=== PATIENT | male | born 1980 | race Caucasian/White ===

== ENCOUNTER 2022-02-17 13:39 | Outpatient (CLI) | payer BC, SELFPAY ==
[2022-02-17 17:30] LABS: INR 1.02 (0.91-1.10); Prothrombin Time 13.8 Seconds
[2022-02-17 17:31] LABS: Partial Thromboplastin Time* 33 Seconds (23-33)
== END 2022-02-17 13:40 | disposition home or self-care (01) ==
PROVIDERS: PCP Family Medicine; Visit Provider Otolaryngology
DX: R04.0 Epistaxis (principal)
CPT/HCPCS: 85610; 85730

== ENCOUNTER 2023-03-04 13:30 | Outpatient (REF) | payer BC, SELFPAY ==
[2023-03-04 14:06] LABS: Amphetamine Screen Urine Negative (Negative); Barbiturate Screen Urine Negative (Negative); Benzodiazepines Screen Urine Negative (Negative); Cannabinoid Screen Urine Negative (Negative); Cocaine Screen Urine Negative (Negative); Methadone Screen Urine Negative (Negative); Methamphetamines Screen Urine Negative (Negative); Opiate Screen Urine Negative (Negative); Oxycodone Screen Urine Negative (Negative); Phencyclidine Screen Urine Negative (Negative); Tricyclic Antidepressant Urine Negative (Negative)
== END 2023-03-04 13:31 | disposition home or self-care (01) ==
LOC: NPINS 13:30
PROVIDERS: PCP Family Medicine
DX: Z79.899 Other long term (current) drug therapy (principal)
CPT/HCPCS: 80306

== ENCOUNTER 2024-04-29 14:42 | Outpatient (CLI) | payer BC, SELFPAY ==
[2024-04-29 15:08] LABS: Amphetamine Screen Urine POSITIVE (Negative); Barbiturate Screen Urine Negative (Negative); Benzodiazepines Screen Urine Negative (Negative); Cannabinoid Screen Urine Negative (Negative); Cocaine Screen Urine Negative (Negative); Methadone Screen Urine Negative (Negative); Methamphetamines Screen Urine Negative (Negative); Opiate Screen Urine Negative (Negative); Oxycodone Screen Urine Negative (Negative); Phencyclidine Screen Urine Negative (Negative); Tricyclic Antidepressant Urine Negative (Negative)
== END 2024-04-29 14:43 | disposition home or self-care (01) ==
LOC: LAB 14:44
PROVIDERS: Nurse Practitioner Psychiatric/Mental Health; PCP Family Medicine
DX: F90.0 Attention-deficit hyperactivity disorder, predominantly inattentive type (principal)
CPT/HCPCS: 80306

== ENCOUNTER 2024-05-29 05:43 | Emergency (ER) | payer BC, SELFPAY ==
[2024-05-29 05:52] VITALS: BP 154/121; PULSE 73; RESP 16; TEMP 36.7; O2SAT 98; BMI 32.7
--- NOTE | 2024-05-29 06:14 | ED_ITS ---
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 He has not take any Tylenol or ibuprofen. Related Data Home Medications ?Medication ?Instructions ?Recorded ?Confirmed epinephrine 0.125 mg/actuation 1 puff inhalation ONCE 07/10/22 05/25/24 aerosol inhaler (Primatene Mist) dextroamphetamine-amphetamine 20 20 mg PO QDAY 05/25/24 05/29/24 mg tablet (Adderall) Previous Rx's ?Medication ?Instructions ?Recorded albuterol sulfate 90 mcg/actuation 2 inh inhalation Q6H PRN shortness 07/10/22 breath activated powder inhaler of breath or wheezing #1 ea fluticasone propionate 110 1 inh inhalation BID #12 grams 07/10/22 mcg/actuation HFA aerosol inhaler (Flovent HFA) montelukast 10 mg tablet 10 mg PO QHS #30 tabs 08/03/22 sertraline 100 mg tablet (Zoloft) 200 mg (2 x 100 mg) PO QDAY #60 11/12/22 tabs cephalexin 500 mg capsule 500 mg PO QID 7 days #28 caps 05/25/24 cephalexin 500 mg capsule 500 mg PO TID 10 days #30 caps 05/29/24 sulfamethoxazole 800 1 tab PO BID 10 days #20 tabs 05/29/24 mg-trimethoprim 160 mg tablet (Bactrim DS) Allergies Allergy/AdvReac Type Severity Reaction Status Date / Time Penicillins Allergy Mild rash Verified 05/25/24 17:59 Review of Systems Status of ROS: Reports: 10 or more systems reviewed and unremarkable except as noted in History and below [facility] Medical History Microscopic hematuria (02/24/18) ?R31.29 - Other microscopic hematuria (ICD-10) Herpes zoster ?B02.9 - Zoster without complications (ICD-10) Surgical History History of vasectomy (2017) ?Z98.52 - Vasectomy status (ICD-10) History of third molar tooth extraction ?K08.409 - Partial loss of teeth, unspecified cause, unspecified class (ICD- 10) Family History Father Coronary artery disease Paternal Grandfather Coronary artery disease Mother Depression Family/Other Stroke Parkinsons Son Von Willebrand disease Social History Narrative: , 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 His range of motion of his left knee is excellent greater than 90? in full extension is noted, popliteal fossa is normal. Right-side also has some lichenification cap refills normal sensations normal. I did review his previous visit urgent care. He was given Keflex, I think he needs more broad coverage for Staph, we will add in some Bactrim. Const: Vital Signs, click to edit/add: Vital Signs - 24 hr 05/29/24 05:52 Temperature 98.1 F Pulse Rate [Pulse Oximeter] 73 Respiratory Rate 16 Blood Pressure [Ri ght Upper Arm] 154/121 H Pulse Oximetry 98 Oxygen Delivery Me thod Room Air Documenting provider has reviewed patient's vital signs: yes Course Vital Signs Vital signs: Initial Vital Signs Temperature 98.1 F 05/29/24 05:52 Temperature Source Temporal Artery Scan 05/29/24 05:52 Pulse Rate 73 05/29/24 05:52 Respiratory Rate 16 05/29/24 05:52 Blood Pressure 154/121 H 05/29/24 05:52 Blood Pressure Mean 132 H 05/29/24 05:52 Blood Pressure Position Sitting 05/29/24 05:52 Pulse Oximetry 98 05/29/24 05:52 Oxygen Delivery Method Room Air 05/29/24 05:52 Vital Signs Temperature 98.1 F 05/29/24 05:52 Pulse Rate 73 05/29/24 05:52 Respiratory Rate 16 05/29/24 05:52 Blood Pressure 154/121 H 05/29/24 05:52 Pulse Oximetry 98 05/29/24 05:52 Oxygen Delivery Method Room Air 05/29/24 05:52 Temperature 98.1 F 05/29/24 05:52 Pulse Rate 73 05/29/24 05:52 Respiratory Rate 16 05/29/24 05:52 Blood Pressure 154/121 H 05/29/24 05:52 Pulse Oximetry 98 05/29/24 05:52 Oxygen Delivery Method Room Air 05/29/24 05:52 MDM - Skin/Abscess/Foreign Bdy MDM Narrative Medical decision making narrative: I discussed with him that he really needs to wear knee immobilizer to keep him from a moving this, as this does cause the skin to crack common goes back in the same cycle he also should put some bacitracin on his leg, over the area of cracked skin. Along with the antibiotics. He does not need admission at the p resent time I did not do a WBC cause this will not be helpful, I do not think he is toxic given his vital signs. And his ability to walk on this and move it so well Medical Records Attestation: I reviewed the patient's medical records. Discharge Plan Discharge Clinical Impression: Cellulitis, Bursitis, prepatellar, left Patient Disposition: Home, Self-Care Condition: Stable Instructions: Knee Bursitis (ED) Additional Instructions: Home rest wear knee immobilizer the only time this comes off is when you shower, otherwise he need to wear for the next 7-10 days, take the Keflex along with the Bactrim, bacitracin twice daily on the wound also is appropriate. Follow-up with primary care in the next 5 days, for recheck, return if worsening Activity Level: Light activity and Other Activity Detail: Need to wear knee immobilizer Prescriptions: New cephalexin 500 mg capsule 500 mg PO TID 10 Days Qty: 30 0RF sulfamethoxazole-trimethoprim [Bactrim DS] 800-160 mg tablet 1 tab PO BID 10 Days Qty: 20 0RF No Action Primatene Mist 0.125 mg/actuation HFA aerosol inhaler 1 puff inhalation ONCE Rx Instructions: may repeat once after 1 minute albuterol sulfate 90 mcg/actuation aerosol powdr breath activated 2 inh inhalation Q6H PRN (Reason: shortness of breath or wheezing) Qty: 1 0RF fluticasone propionate [Flovent HFA] 110 mcg/actuation HFA aerosol inhaler 1 inh inhalation BID Qty: 12 0RF montelukast 10 mg tablet 10 mg PO QHS Qty: 30 5RF dextroamphetamine-amphetamine [Adderall] 20 mg tablet 20 mg PO QDAY cephalexin 500 mg capsule 500 mg PO QID 7 Days Qty: 28 0RF sertraline [Zoloft] 100 mg tablet 200 mg PO QDAY Qty: 60 0RF Rx Instructions: Appt required before any future refills Follow Up/Referrals: Alma Mireles MD [Primary Care Provider] - Stand Alone Forms: [facility] Info Instructions
== END 2024-05-29 06:27 | disposition home or self-care (01) ==
LOC: ED 06:19
PROVIDERS: Emergency Provider Family Medicine; PCP Family Medicine
DX: M70.42 Prepatellar bursitis, left knee (principal); L03.116 Cellulitis of left lower limb
CPT/HCPCS: 99283; 99284